=== PATIENT | male | born 1965 | race Caucasian/White ===

== ENCOUNTER → 2022-01-07 | Day surgery (SDC) | payer OTHER ==
[~2022-01-07] VITALS: Ht 177.8 cm; Wt 81.4 kg
[~2022-01-07] MED LIST: ABILIFY2 MG PO; AMBIEN10 MG PO; CLONAZEPAM 1MG T1 MG PO; INDOMETHACIN50 MG PO; LAMOTRIGINE200 MG PO; NEXIUM20 MG PO; NORCO 5-325 TA1 EACH PO; ONDANSETRON ODT8 MG PO; ONE-DAILY MULT1 EACH PO; PRINIVIL10 MG PO; VITAMIN D3125 MC1 PO
[2022-01-07 09:12] LABS: HCT 45.7 % (42.0-52.0); HGB 15.4 g/dl (13.2-18.0); MCH 29.9 pg (25.0-31.0); MCHC 33.7 g/dL (32.0-36.0); MCV 88.7 fL (78.0-100.0); MPV 9.3 fL (6.0-9.5); RBC 5.15 M/uL (4.70-6.00); RDW 12.8 % (11.5-14.0); WBC 6.9 K/uL (4.0-10.5)
[2022-01-07 10:09] LABS: BUN/CREAT RATIO (CALC) 9.4 RATIO; CREATININE 1.06 mg/dL (0.67-1.17); POTASSIUM 4.2 mmol/L (3.5-5.1)
== END | disposition home or self-care (01) ==
LOC: FAS 08:31
PROVIDERS: Surgery
DX: K40.90 Unilateral inguinal hernia, without obstruction or gangrene, not specified as recurrent (principal); I10 Essential (primary) hypertension; K21.9 Gastro-esophageal reflux disease without esophagitis; F32.A Depression, unspecified; Z79.899 Other long term (current) drug therapy
CPT/HCPCS: 36415; 80048; C1727; C1781; J0690; J2250; J2405; J2704; J2710; J3010; J7120